=== PATIENT | male | born 1940 | race Caucasian/White ===

== ENCOUNTER → 2017-01-17 | Outpatient (CLI) | payer MEDICARE ==
[~2017-01-17] MED LIST: REGADENOSON 0.4 MG/5 ML DISP.SYRIN. IV ONE
--- NOTE | 2017-01-20 17:14 | PCVCIMAG ---
APPROVED REPORT Exam: Nuclear Stress Test Indication: Chest pain Patient Location: Out-Patient Stress Nurse: Cheyanne Champagne RN, SETH Ralph Tech:Gilbert EVY White Ht: 6 ft 3 in Wt: 243 lbs BSA: 2.38 m2 HR: 75 bpm BP: 160/74 mmHg BMI: 30.3 Rhythm: NSR, ST & T ABNORMALITY Medical History Medical History: AGE, HTN, DM(INSULIN), FAM HX OF CAD Medications: Aldactone, Toprol XL, Lisinopril, Humalog, Norvasc Allergies: IODINE Pretest Chest Pain Characteristics: No chest pain Exercise History: Physically active Meds Held (24 hrs): Toprol XL UT EXAM: Myocardial Perfusion REST/STRESS Imaging Protocol: Rest Tc-99m/Stress Tc-99m 1 day Resting Data Rest SPECT myocardial perfusion imaging was performed in supine position 45 minutes following the intravenous injection of 10.0 mCi of Tc-99m Sestamibi. Time of rest injection: 0845 Date: 01/17/2017 Administration Route: IV Administration Site: Right Hand Pharmacologic Stress Pharmacologic stress test was performed by injecting Regadenoson 0.4 mg IV push followed by the intravenous injection of 35.4 mCi of Tc-99m Sestamibi. Time of stress injection: 1005 Date: 01/17/2017 Administration Route: IV Administration Site: Right Hand Gated Stress SPECT was performed 45 minutes after stress injection. The images were gated to evaluate regional wall motion and calculate left ventricular ejection fraction. Comments 2015: NON-ISCHEMIC SE Study Quality Study: Good Study Data Post stress, the left ventricular ejection was 69%.. SSS: 1 SRS: 3 SDS: 0 TID = 1.37. Perfusion Small sized area of mild reversible ischemia involving the lateral apex of the left ventricle. Post stress left ventricular chamber dilatation is noted. This is a nonspecific finding but may sometimes be seen with multi-vessel coronary disease. Please correlate clinically. Wall Motion Normal left ventricular function with no regional wall motion abnormalities. Nuclear Conclusion Small sized area of mild reversible ischemia involving the lateral apex of the left ventricle. Post stress left ventricular chamber dilatation is noted. This is a nonspecific finding but may sometimes be seen with multi-vessel coronary disease. Please correlate clinically. Normal left ventricular function with no regional wall motion abnormalities. Post stress, the left ventricular ejection was 69%.. No prior study available for comparison. Interpreted by: Porfirio Echols MD Electronically Approved: 01/17/2017 12:59:17 Stress Test Details Stress Test: Pharmacologic stress was paired with low level exercise. Reason for pharmacologic stress test: physical limitation. HR Resting HR: 75 bpmMax Heart Rate (APMHR): 144 bpm Max HR Achieved: 92 bpmTarget HR (85% APMHR): 122 bpm % of APMHR: 63 Recovery HR: 83 bpm BP Resting BP: 160/74 mmHg Max BP: 172/81 mmHg ECG Resting ECG: Sinus Rhythm, nonspecific ST-T abnormalities Stress ECG: Sinus Rhythm, nonspecific ST-T abnormalities Recovery ECG: Sinus Rhythm, nonspecific ST-T abnormalities Clinical Reason for Termination: Completed protocol Stress Symptoms: Dyspnea(MILD) Exercise duration: 4 min sec Exercise capacity: 1.6 METs Symptoms resolved during recovery. Stress ECG Conclusion ECG: Non-ischemic <Conclusion> ECG: Non-ischemic
== END | disposition home or self-care (01) ==
LOC: PCVCIMAG 08:20
PROVIDERS: ATTEND Internal Medicine Cardiovascular Disease
DX: I10 Essential (primary) hypertension (principal); R07.9 Chest pain, unspecified
CPT/HCPCS: 78452; 93017; A9500; J2785

== ENCOUNTER → 2017-02-15 | Outpatient (CLI) | payer MEDICARE | END | disposition home or self-care (01) | LOC: PCVCCLINIC 11:32 | DX: I10 Essential (primary) hypertension (principal); E78.00 Pure hypercholesterolemia, unspecified; G47.30 Sleep apnea, unspecified; E11.9 Type 2 diabetes mellitus without complications; R53.83 Other fatigue; R94.31 Abnormal electrocardiogram [ECG] [EKG]; Z79.4 Long term (current) use of insulin; Z79.899 Other long term (current) drug therapy | CPT/HCPCS: 80061; 93005; G0463 ==

== ENCOUNTER → 2017-03-01 | Outpatient (CLI) | payer MEDICARE ==
[~2017-03-01] MED LIST changes: +DIAZEPAM 10 MG TABLET.; +FAMOTIDINE 20 MG/2 ML VIAL; +IOHEXOL 350 MG/ML 100 ML VIAL.; +IOHEXOL 350 MG/ML 50 ML VIAL.; +IV NORMAL SALINE 1000ML BAG 1,000 ML; +LIDOCAINE 1% Multi-Dose 20 ML VIAL.; +MIDAZOLAM HCL/PF 2 MG/2 ML VIAL.; -REGADENOSON 0.4 MG/5 ML DISP.SYRIN. IV ONE; +diphenhydrAMINE 50 MG/ML VIAL; +fentaNYL PF VIAL 100 MCG/2 ML VIAL; +methylPREDNISolone SOD SUCC PF 125 MG/2 ML VIAL.
== END | disposition home or self-care (01) ==
LOC: PCVCINTER 10:00
DX: I25.10 Atherosclerotic heart disease of native coronary artery without angina pectoris (principal); E78.5 Hyperlipidemia, unspecified; E78.00 Pure hypercholesterolemia, unspecified; I12.9 Hypertensive chronic kidney disease with stage 1 through stage 4 chronic kidney disease, or unspecified chronic kidney disease; E11.22 Type 2 diabetes mellitus with diabetic chronic kidney disease; N18.9 Chronic kidney disease, unspecified
CPT/HCPCS: 93460; 99152; 99153; C1751; C1760; C1769; C1894; J1200; J1644; J2250; J2930; J3010; J7030; Q9967; S0028

== ENCOUNTER → 2017-03-16 | Outpatient (CLI) | payer MEDICARE | END | disposition home or self-care (01) | LOC: PCVCCLINIC 10:20 | DX: Z01.812 Encounter for preprocedural laboratory examination (principal); I10 Essential (primary) hypertension; E78.00 Pure hypercholesterolemia, unspecified; G47.30 Sleep apnea, unspecified; E11.9 Type 2 diabetes mellitus without complications; Z82.49 Family history of ischemic heart disease and other diseases of the circulatory system | CPT/HCPCS: 36415 ==

== ENCOUNTER → 2017-03-29 | Outpatient (CLI) | payer MEDICARE | END | disposition home or self-care (01) | LOC: PCVCCLINIC 15:26 | DX: I12.9 Hypertensive chronic kidney disease with stage 1 through stage 4 chronic kidney disease, or unspecified chronic kidney disease (principal); E11.22 Type 2 diabetes mellitus with diabetic chronic kidney disease; N18.9 Chronic kidney disease, unspecified; E78.00 Pure hypercholesterolemia, unspecified; R94.31 Abnormal electrocardiogram [ECG] [EKG]; Z82.49 Family history of ischemic heart disease and other diseases of the circulatory system; Z79.82 Long term (current) use of aspirin; Z79.899 Other long term (current) drug therapy; Z79.4 Long term (current) use of insulin | CPT/HCPCS: 36415; 93005; G0463 ==

== ENCOUNTER → 2017-08-01 | Outpatient (CLI) | payer MEDICARE | END | disposition home or self-care (01) | LOC: PCVCCLINIC 15:28 | DX: I25.10 Atherosclerotic heart disease of native coronary artery without angina pectoris (principal); I12.9 Hypertensive chronic kidney disease with stage 1 through stage 4 chronic kidney disease, or unspecified chronic kidney disease; E11.22 Type 2 diabetes mellitus with diabetic chronic kidney disease; N18.9 Chronic kidney disease, unspecified; R94.31 Abnormal electrocardiogram [ECG] [EKG]; E78.00 Pure hypercholesterolemia, unspecified; Z79.82 Long term (current) use of aspirin; Z79.899 Other long term (current) drug therapy; Z88.8 Allergy status to other drugs, medicaments and biological substances | CPT/HCPCS: 80061; 93005; G0463 ==

== ENCOUNTER → 2017-11-15 | Outpatient (CLI) | payer MEDICARE ==
--- NOTE | 2017-11-15 14:32 | PCVCIMAG ---
APPROVED REPORT Study performed: 11/15/2017 11:02:17 Exam: Stress Echocardiogram Indication: CAD s/p PCI, Hypertension, DM Patient Location: Echo lab Stress Nurse: Sharmila Vogt RN Status: routine Ht: 6 ft 3 in HR: 77 bpm BP: 158/84 mmHg Rhythm: NSR Procedure The patient underwent an Exercise Stress Test using the Aguilar Protocol. Blood pressure, heart rate, and EKG were monitored. An Echocardiogram was performed by maintenance mechanic technician in four stages in quad fashion. At peak stress, four selected images were obtained and placed side by side with resting images for comparison. Stress Test Details Stress Test: Exercise stress testing was performed using a Aguilar protocol. HR Resting HR: 77 bpmMax Heart Rate (APMHR): 143 bpm Max HR Achieved: 125 bpmTarget HR (85% APMHR): 121 bpm % of APMHR: 87 Recovery HR: 75 bpm HR response to stress: Normal HR response to stress BP Resting BP: 158/84 mmHg Max BP: 210/70 mmHg Recovery BP: 160/78 mmHg ECG Resting ECG: Sinus Rhythm, nonspecific ST-T abnormalities Stress ECG: Sinus Rhythm, nonspecific ST-T abnormalities ST Change: Nondiagnostic resting ST abnormalities Arrhythmia: occasional PACs and isolated PVCs Recovery ECG: Sinus Rhythm, nonspecific ST-T abnormalities Recovery ST Change: Normal Recovery Arrhythmia: None Clinical Reason for Termination: Maximal effort Stress Symptoms: Dyspnea, Leg Fatigue Exercise duration: 7 min 39 sec Highest Stage Achieved: Stage 3: 3.4 mph at 14% grade. Exercise capacity: 10.1 METs Overall Exercise Capacity for Age: Normal Angina Score: None Pre-Stress Echo The resting Echocardiogram showed normal left ventricular contractility with an estimated Ejection Fraction of about >55%. Normal wall motion in all segments on baseline images. Post-Stress Echo The stress Echocardiogram showed normal left ventricular contractility with an estimated Ejection Fraction of about 65%. Normal augmentation of wall motion in all segments on post stress images. Clinical No clinical or ECG evidence for ischemia. Conclusion Clinical Response: Non-ischemic Exercise Capacity: Average Stress ECG Response: Non-ischemic Stress Echo Images: Non-ischemic The left ventricle is normal in size and mild concentric LVH in both the rest and stress images. Other Information Study Quality: Adequate <Conclusion> The left ventricle is normal in size and mild concentric LVH in both the rest and stress images.
== END | disposition home or self-care (01) ==
LOC: PCVCIMAG 11:07
PROVIDERS: ATTEND Internal Medicine Cardiovascular Disease
DX: I25.10 Atherosclerotic heart disease of native coronary artery without angina pectoris (principal); I12.9 Hypertensive chronic kidney disease with stage 1 through stage 4 chronic kidney disease, or unspecified chronic kidney disease; E11.22 Type 2 diabetes mellitus with diabetic chronic kidney disease; N18.9 Chronic kidney disease, unspecified; E78.00 Pure hypercholesterolemia, unspecified
CPT/HCPCS: 80061; 93325; 93351

== ENCOUNTER → 2018-08-28 | Outpatient (CLI) | payer MEDICARE | END | disposition home or self-care (01) | LOC: PCVCCLINIC 14:56 | PROVIDERS: ATTEND Internal Medicine Cardiovascular Disease | DX: I25.10 Atherosclerotic heart disease of native coronary artery without angina pectoris (principal); I12.9 Hypertensive chronic kidney disease with stage 1 through stage 4 chronic kidney disease, or unspecified chronic kidney disease; E11.22 Type 2 diabetes mellitus with diabetic chronic kidney disease; N18.4 Chronic kidney disease, stage 4 (severe); E78.00 Pure hypercholesterolemia, unspecified; K85.30 Drug induced acute pancreatitis without necrosis or infection; K52.9 Noninfective gastroenteritis and colitis, unspecified; D64.9 Anemia, unspecified; I48.0 Paroxysmal atrial fibrillation; R19.5 Other fecal abnormalities; E03.9 Hypothyroidism, unspecified; Z79.4 Long term (current) use of insulin; Z91.041 Radiographic dye allergy status; Z79.899 Other long term (current) drug therapy | CPT/HCPCS: 36415; 80061; 93005; G0463 ==